=== PATIENT | male | born 1945 | race Caucasian/White ===

== ENCOUNTER → 2022-10-02 13:55 | Outpatient (CLI) | payer OTHER, SELFPAY ==
--- NOTE | 2022-10-02 | DI.ECHO.S_ITS ---
[place] +---------+ [facility] +---------+ : : [address] : : : : [id number] : : : : Phone: [phone]---------+ Echocardiogram Report + + :Name: DIXIE RODRIGUEZ Study Date: 10/02/2022 Height: 75 in : :[facility] ReadingLocation: Weight: 246 lb : : Gender: Male BSA: 2.4 m2 : :: 1945 Age: 77 yrs BP: 132/84 mmHg: :Reason For Study: VENTRICULAR PREMATURE DEPOLARIZATION HR: 70 : :Ordering Physician: AMITA, : :RODRIGO Performed By: CARMEN SHEPARD : :Referring: RODRIGO LEVI : + + Interpretation Summary The left ventricle is normal in size. The ejection fraction is estimated to be 55-60%. 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 The right ventricle is normal size. Visually RV function appears to be preserved. There is mild tricuspid regurgitation. Right ventricular systolic pressure is estimated to be at least 18.1 mmHg plus right atrial pressure. Procedure: A two-dimensional transthoracic echocardiogram with color flow and Doppler was performed. The study quality was technically adequate. There is no prior echocardiogram noted for this patient. The patient was in normal sinus rhythm during the exam. Left Ventricle: The left ventricle is normal in size. Proximal septal thickening is noted. There is no echo evidence for significant left ventricular outflow tract obstruction. There is no thrombus. Trabeculae near apex are visualized. No thrombus is observed. Left ventricular systolic function is normal. The ejection fraction is estimated to be 55-60%. 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 MV E/A: 0.45 Med Peak E' Scooby: 2.8 cm/sec E/E' med: 15.6. Right Ventricle: The right ventricle is normal size. Visually RV function appears to be preserved. Atria: The left atrial size is normal. Right atrial size is normal. The atrial septum is aneurysmal. Mitral Valve: The mitral valve leaflets appear borderline thickened, but open well. There is trace mitral regurgitation. Aortic Valve: The aortic valve is trileaflet. The aortic valve opens well. The aortic valve is moderately calcified. Nodular density seen at the coaptation point of noncoronary as well as right coronary cusps suggestive of nodule of Arantius which are likely normal variant. There is no aortic valve stenosis. No aortic regurgitation is present. Tricuspid Valve: The tricuspid valve is normal. There is mild tricuspid regurgitation. Right ventricular systolic pressure is estimated to be at least 18.1 mmHg plus right atrial pressure. Pulmonic Valve: The pulmonic valve leaflets are thin and pliable; valve motion is normal. There is no pulmonic valvular regurgitation. Great Vessels: The aortic root is normal size. The ascending aorta is at the upper limits of normal in size. The inferior vena cava was not visualized. Pericardium/ Pleura There is no pericardial effusion. There is no pleural effusion. MMode/2D Measurements & Calculations LVIDd: 4.2 cm LVOT diam: 2.1 cm LVIDs: 3.2 cm Ao root diam: 4.1 cm FS: 23.8 % asc Aorta Diam: 3.8 cm IVSd: 1.0 cm LVPWd: 1.2 cm LV jefferson. diameter/BSA (cm/m^2): 1.8 LV sys. diameter/BSA (cm/m^2): 1.3 LA A2 area: 24.9 cm2 RA long axis: 5.1 cm LA A4 area: 17.4 cm2 LA length (vol): 6.7 cm LA vol: 54.6 ml LA vol index: 22.8 ml/m2 LVLs ap4: 7.5 cm LVLd ap2: 9.0 cm LVLs ap2: 7.8 cm TAPSE_phl: 1.5 cm Doppler Measurements & Calculations Ao V2 max: 136.0 cm/sec LVOT Max Scooby: 104.0 cm/sec Ao V2 mean: 107.0 cm/sec LV V1 max P.3 mmHg Ao max P.4 mmHg LV V1 VTI: 22.6 cm Ao mean P.0 mmHg DOROTA(I,D): 2.8 cm2 Ao V2 VTI: 27.8 cm DOROTA(V,D): 2.6 cm2 sev ratio: 0.81 DOROTA indexed to BSA (cm^2/m^2): 1.2 MV E max scooby: 43.7 cm/sec TR max scooby: 213.0 cm/sec MV A max scooby: 97.3 cm/sec TR max P.1 mmHg MV E/A: 0.45 PA V2 max: 110.0 cm/sec Med Peak E' Scooby: 2.8 cm/sec PA V2 mean: 80.4 cm/sec E/E' med: 15.6 PA mean P.0 mmHg Lat Peak E' Scooby: 7.5 cm/sec PA pr(Accel): 21.9 mmHg E/E' lat: 5.9 E/e' average: 10.7 MV dec time: 0.22 sec SV(LVOT): 78.3 ml AV VR_phl: 0.76 DOROTA(VTI)/BSA_phl: 1.2 MV P1/2t-pr_phl: 64.0 msec Reading Physician:02:35 PM
== END ==
PROVIDERS: Referring Provider Family Medicine; Visit Provider Family Medicine
DX: I49.3 Ventricular premature depolarization (principal); I07.1 Rheumatic tricuspid insufficiency
CPT/HCPCS: 93306